=== PATIENT | female | born 1985 | race Caucasian/White ===

== ENCOUNTER 2017-05-19 07:16 | Day surgery (SDC) | payer BC ==
--- NOTE | 2017-05-18 09:34 | PCM.PREANE ---
Preanesthetic Assessment - Anesthesia/Transfusion/Family Hx Anesthesia History: Prior Anesthesia Without Reaction Family History of Anesthesia Reaction: No Transfusion History: No Prior Transfusion(s) Intubation History: Unknown - Review of Systems General: No Symptoms Pulmonary: No Symptoms (quit smoking in 2010.) Cardiovascular: No Symptoms Gastrointestinal: No Symptoms Neurological: No Symptoms (History of motion sickness) Other: Reports: Sinus Problem (seasonal allergies/occasional sinus infection) - Physical Assessment NPO Status Date: 05/18/17 NPO Status Time: 20:30 Pulse: 83 O2 Sat by Pulse Oximetry: 97 Respiratory Rate: 16 Blood Pressure: 122/70 Temperature: 35.9 C Height: 1.7 m Weight: 82 kg ASA Class: 1 Mental Status: Alert & Oriented x3 Airway Class: Mallampati = 2 Dentition: Reports: Normal Dentition, Caries Thyro-Mental Finger Breadths: 3 Mouth Opening Finger Breadths: 3 ROM/Head Extension: Full Lungs: Clear to Auscultation, Normal Respiratory Effort Cardiovascular: Regular Rate, Regular Rhythm, No Murmurs - Lab Values: Laboratory Last Values MRSA (PCR) Negative 04/26/17 09:05 Above lab value noted. - Allergies Allergies/Adverse Reactions: Allergies Allergy/AdvReac Type Severity Reaction Status Date / Time No Known Allergies Allergy Verified 05/18/17 14:06 - Anesthesia Plan Pre-Op Medication Ordered: None - Acknowledgements Anesthesia Type Planned: General Anesthesia Pt an Appropriate Candidate for the Planned Anesthesia: Yes Alternatives and Risks of Anesthesia Discussed w Pt/Guardian: Yes Pt/Guardian Understands and Agrees with Anesthesia Plan: Yes PreAnesthesia Questionnaire - HOME MEDS Home Medications: Home Meds Acetaminophen [Tylenol] 650 mg PO Q4HR PRN 05/18/17 [History] Acetaminophen/HYDROcodone [[place] 325-5 MG] 1 - 2 tab PO Q6H PRN #20 tablet 05/19 [Rx] Aspirin 325 mg PO BID #84 tab 05/19/17 [Rx] - CURRENT (IN HOUSE) MEDS Current Meds: Current Medications Lactated Ringer's (Ringers, Lactated) 1,000 mls @ 125 mls/hr IV ASDIRECTED NICOLETTE Stop: 05/19/17 23:00 Lidocaine/Sodium Bicarbonate (Buffered Lidocaine 1% In Ns 8.4%) 0.25 ml IDERM ONETIME PRN PRN Reason: Prior to IV Start Stop: 05/19/17 18:00 Sodium Chloride (Saline Flush) 10 ml FLUSH ASDIRECTED PRN PRN Reason: Keep Vein Open Stop: 05/19/17 18:00
[~2017-05-19 07:16] MED LIST: Dexamethasone 4 MG/ML 5 ML MDV ONE; Ketorolac 30 MG/ML SDV ONE; Lactated Ringers 1,000 ML IV SCH; Lactated Ringers 1,000 ML ONE; Lidocaine 1% 4 ML ONE; Lidocaine 1%/Sod Bicarbonate in NS 8.4% 1 ML Syringe IDERM PRN; Midazolam 1 MG/ML 2 ML SDV ONE; Ondansetron 4 MG/2 ML SDV ONE; Propofol 200 MG/20 ML SDV ONE; Sodium Chloride 0.9% 10 ML Syringe FLUSH PRN; ceFAZolin 1 GM Vial ONE; fentaNYL 250 MCG/5 ML SDV ONE
[2017-05-19] MEDS ORDERED: Bupivacaine 0.25% 10 ML SDV ONE (07:44)
[2017-05-19] MEDS ORDERED: Scopolamine 1 MG Transdermal Patch TRDERM ONE (08:02)
[2017-05-19] MEDS ORDERED: EPINEPHrine 1 MG/ML 30 ML MDV ONE (08:30)
[2017-05-19] MEDS ORDERED: Midazolam 1 MG/ML 2 ML SDV IVPUSH PRN (08:50)
[2017-05-19] MEDS ORDERED: diphenhydrAMINE 50 MG/ML SDV IVPUSH PRN (08:50)
[2017-05-19] MEDS ORDERED: Meperidine PF 50 MG/ML Syringe IVPUSH PRN (08:50)
[2017-05-19] MEDS ORDERED: Ondansetron 4 MG/2 ML SDV IVPUSH PRN (08:50)
[2017-05-19] MEDS ORDERED: Metoclopramide 10 MG/2 ML SDV IV PRN (08:50)
[2017-05-19] MEDS ORDERED: ePHEDrine 50 MG/ML SDV IVPUSH PRN (08:50)
[2017-05-19] MEDS ORDERED: fentaNYL 100 MCG/2 ML SDV IVPUSH PRN (08:50)
--- NOTE | 2017-05-19 09:52 | PCM.POSTAN ---
POST ANESTHESIA ASSESSMENT - MENTAL STATUS Mental Status: Alert - VITAL SIGNS Pulse Rate: 80 SaO2: 99 Resp Rate: 14 Blood Pressure: 133/77 Temperature: 36.7 C - RESPIRATORY Respiratory Status: Respiratory Rate WNL, Airway Patent, O2 Saturation Stable, Supplemental Oxygen - CARDIOVASCULAR CV Status: Pulse Rate WNL, Blood Pressure Stable - GASTROINTESTINAL GI Status: No Symptoms - POST OP HYDRATION Hydration Status: Adequate & Stable
[2017-05-19] MEDS ORDERED: Acetaminophen/HYDROcodone 325-5 MG Tab PO PRN (10:06)
--- NOTE | 2017-05-19 12:15 | PCM48HPAN ---
Post Anesthesia Note - EVALUATION WITHIN 48HRS OF ANESTHETIC Vital Signs in Normal Range: Yes Patient Participated in Evaluation: Yes Respiratory Function Stable: Yes Airway Patent: Yes Cardiovascular Function Stable: Yes Hydration Status Stable: Yes Pain Control Satisfactory: Yes Nausea and Vomiting Control Satisfactory: Yes Mental Status Recovered: Yes
--- NOTE | 2017-05-22 21:45 | PCM.OPNOTE ---
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
--- NOTE | 2017-05-22 22:41 | OR ---
DATE OF OPERATION: 05/19/2017 SURGEON: Fili Alexander MD OPERATION PERFORMED: Right knee video arthroscopy with partial synovectomy. PREOPERATIVE DIAGNOSIS: Right knee patellofemoral arthrosis and possible plica. POSTOPERATIVE DIAGNOSIS: Right knee patellofemoral arthrosis and possible plica. ANESTHESIA: Technique, general LMA with local. ANESTHESIA PROVIDER: Bhumi Medrano CRNA. POULTRY HUSBANDMAN: Savanah Prince PA-C. ESTIMATED BLOOD LOSS: 5 mL. COMPLICATIONS: None. CONDITION: Stable, DESCRIPTION OF PROCEDURE: The patient was identified in the preop holding area. Proper site was marked and identified by the surgeon. The patient was taken back to the operating theater, where after adequate anesthesia, the patient's right lower extremity had a nonsterile tourniquet applied and then was placed in a C-clamp manzano. The left lower extremity was placed in a well-leg manzano. Foot of the bed was then lowered and the right lower extremity was sterilely prepped and draped in the usual sterile fashion. OR time-out was performed. The patient received 2 g IV Ancef. At this time, the right lower extremity was exsanguinated. Tourniquet was insufflated to 250 mmHg. Standard anterior lateral portal incision was made. The scope trocar was introduced. 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 Next, the trochlea only had grade 1 chondromalacia, but not very severe and was mostly on the lateral side. At this time, the patient did have significant overgrowth of the fat pad as well as just a small plica on the medial side. Attention was turned to the medial compartment. Anteromedial portal was created with the use of a spinal needle. At this time, the medial compartment was visualized. There were no signs of chondromalacia and no medial meniscus tear. The ACL was found to be intact in the notch. Lateral compartment showed no signs of chondromalacia and no lateral meniscus tear. At this time, a posterior lateral portal was created. Scope trocar was then introduced. The patient was noted to have significant lateral subluxation of the patella with significant patellar tilt noted on the lateral side. At this time, it was decided that the chondroplasty would probably not help the patient, but the patient would be in the future a candidate for medial patellofemoral ligament reconstruction or possible tibial tubercle osteotomy. At this time, a partial synovectomy was performed at the fat pad as well as a small plica. At this time, excess saline was drained from the knee. A 3-0 nylon simple sutures along with local were placed around the incisions. The patient was placed in sterile soft dressing and sent to PACU in stable condition. MMODAL /[id number]
== END 2017-05-19 12:10 | disposition home or self-care (01) ==
LOC: JD.SDS 07:16
PROVIDERS: ATTEND Orthopaedic Surgery
DX: M17.11 Unilateral primary osteoarthritis, right knee (principal); M22.41 Chondromalacia patellae, right knee; F41.9 Anxiety disorder, unspecified; Z87.891 Personal history of nicotine dependence
CPT/HCPCS: 29876; 81025; 87641; A9270; J0171; J0690; J1100; J1885; J2250; J2405; J3010; J7120; J2704

== ENCOUNTER 2021-07-05 14:59 | Emergency (ER) | payer BC, OTHER ==
[2021-07-05 17:01] LABS: CORONAVIRUS COVID-19 NAA NEGATIVE (NEGATIVE)
[2021-07-05] MEDS ORDERED: Iopamidol 755 Mg/ML 100 ML Bottle IVPUSH ONE (17:03)
[2021-07-05] MEDS ORDERED: Sodium Chloride 0.9% 20 ML SDV FLUSH ONE (17:03)
[2021-07-05] MEDS ORDERED: Sodium Chloride 0.9% 10 ML Syringe FLUSH PRN (17:22)
[2021-07-05] MEDS ORDERED: Ketorolac 30 MG/ML SDV IVPUSH ONE (17:25)
== END 2021-07-05 18:30 | disposition home or self-care (01) ==
LOC: JD.ED 14:59
DX: R07.89 Other chest pain (principal); F41.9 Anxiety disorder, unspecified; Z20.822 Contact with and (suspected) exposure to COVID-19; Z79.899 Other long term (current) drug therapy
CPT/HCPCS: 0240U; 36415; 71045; 71275; 80053; 83690; 83735; 84484; 85025; 85379; 86140; 93005; 96374; 99285; J1885; J3490; Q9967